=== PATIENT | female | born 1975 | race Caucasian/White ===

== ENCOUNTER 2023-05-08 05:59 | Day surgery (SDC) | payer BC ==
[2023-05-08] MEDS ORDERED: Dextrose 5%-0.45% NaCl 1,000 ML IV SCH (06:00)
[2023-05-08] MEDS ORDERED: Midazolam 1 MG/ML 2 ML SDV IV ONE ×7 (06:00→07:00)
[2023-05-08] MEDS ORDERED: fentaNYL 100 MCG/2 ML SDV IV ONE ×3 (06:00→06:54)
[2023-05-08] MEDS ORDERED: fentaNYL 100 MCG/2 ML SDV ONE (06:15)
[2023-05-08] MEDS ORDERED: Midazolam 1 MG/ML 2 ML SDV ONE (06:15)
== END 2023-05-08 09:00 | disposition home or self-care (01) ==
LOC: DL.ENDO 05:59
PROVIDERS: ATTEND Internal Medicine Gastroenterology
DX: Z12.11 Encounter for screening for malignant neoplasm of colon (principal); E66.09 Other obesity due to excess calories; G47.33 Obstructive sleep apnea (adult) (pediatric); J30.9 Allergic rhinitis, unspecified; E73.9 Lactose intolerance, unspecified; G43.909 Migraine, unspecified, not intractable, without status migrainosus; Z90.49 Acquired absence of other specified parts of digestive tract; Z98.890 Other specified postprocedural states; Z88.1 Allergy status to other antibiotic agents; Z68.32 Body mass index [BMI] 32.0-32.9, adult; Z88.8 Allergy status to other drugs, medicaments and biological substances
CPT/HCPCS: 81025; J2250; J3010; J7042

== ENCOUNTER 2024-01-28 18:10 | Emergency (ER) | payer BC ==
[2024-01-28] MEDS: Lidocaine 1% 5 ML VIAL INJECT ONE (18:29)
[2024-01-28] MEDS: Diphtheria,Pertussis(Acell),Tetanus Vaccine 0.5 ML Syringe IM ONE (18:31)
[2024-01-28] MEDS: Bacitracin Oint 1 GM U/D Packet TOP ONE (19:00)
[2024-01-28] MEDS: Bacitracin Oint 1 GM U/D Packet ONE (19:00)
== END 2024-01-28 19:00 | disposition home or self-care (01) ==
LOC: DL.ED 18:10
DX: S61.202A Unspecified open wound of right middle finger without damage to nail, initial encounter (principal); E66.9 Obesity, unspecified; Z79.82 Long term (current) use of aspirin; Z79.899 Other long term (current) drug therapy; Z68.30 Body mass index [BMI] 30.0-30.9, adult; Z23 Encounter for immunization; W28.XXXA Contact with powered lawn mower, initial encounter
CPT/HCPCS: 12001; 90471; 90715; 99283; A9270; J3490